=== PATIENT | female | born 1940 | race Caucasian/White ===

== ENCOUNTER 2023-12-17 02:58 | Inpatient (IN) | payer MEDICARE, BC, OTHER ==
--- NOTE | 2023-12-17 03:46 | ED ---
General Adult HPI - General Chief complaint: Weakness Stated complaint: AMS Time Seen by Provider: 12/17/23 03:02 Source: patient Mode of arrival: wheelchair Limitations: no limitations - History of Present Illness Initial comments: Dictation was produced using [employer] dictation software. please excuse any grammatical, word or spelling errors. Chief Complaint: 83-year-old female presents emergency department for weakness and fall History of Present Illness: Patient is 83-year-old female history present illness obtained from patient along with daughter who was checked and is a patient in a different room. Patient states she is here because she is having difficulty walking. Patient denies fall however daughter states that patient fell and hit the back of her head because a little abrasion to her left elbow. Patient Nuys any pain complaints. She does not recall having fallen. Daughter states that patient has been confused mixing her directions up. Daughter is concerned that patient has UTI. The ROS documented in this emergency department record has been reviewed and confirmed by me. Those systems with pertinent positive or negative responses have been documented in the HPI. All other systems are other negative and/or noncontributory. - Related Data Allergies Allergy/AdvReac Type Severity Reaction Status Date / Time No Known Allergies Allergy Verified 12/17/23 03:16 Review of Systems ROS Statement: Those systems with pertinent positive or pertinent negative responses have been documented in the HPI. ROS Other: All systems not noted in ROS Statement are negative. Past Medical History Past Medical History: Asthma, Diabetes Mellitus, Hyperlipidemia, Hypertension, Osteoarthritis (OA), Thyroid Disorder Additional Past Medical History / Comment(s): kidney stones History of Any Multi-Drug Resistant Organisms: None Reported Additional Past Surgical History / Comment(s): aortic valve replacement 2022, brain shunt, back sx 2022 Past Psychological History: No Psychological Hx Reported Smoking Status: Never smoker Past Alcohol Use History: None Reported Past Drug Use History: None Reported General Exam - General Exam Comments Initial Comments: E PHYSICAL EXAM: General Impression: Alert and oriented x3, not in acute distress HEENT: Normocephalic atraumatic, extra-ocular movements intact, pupils equal and reactive to light bilaterally, mucous membranes moist. Cardiovascular: Heart regular rate and rhythm Chest: Able to complete full sentences, no retractions, no tachypnea Abdomen: abdomen soft, non-tender, non-distended, no organomegaly Musculoskeletal: Pulses present and equal in all extremities, no peripheral edema Motor: no focal deficits noted Neurological: CN II-XII grossly intact, no focal motor or sensory deficits noted Skin: Intact with no visualized rashes Psych: Normal affect and mood Limitations: no limitations Course Vital Signs 12/17/23 12/17/23 03:07 06:15 Temperature 97.9 F Pulse Rate 72 79 Respiratory 16 20 Rate Blood Pressure 123/52 142/54 O2 Sat by Pulse 94 L 95 Oximetry EKG Findings - EKG Comments: EKG Findings:: My EKG interpretation: Ventricular rate 72, sinus rhythm,. 180, QRS 110, QTc 423. No MI prolongation, no QTC prolongation, no ST or T-wave changes noted. EKG for comparison overall, this EKG is unremarkable Medical Decision Making - Medical Decision Making Was pt. sent in by a medical professional or institution (, PA, INDUSTRIAL ENERGY ENGINEER, urgent care, hospital, or fdc...) When possible be specific @ -No Did you speak to anyone other than the patient for history (EMS, parent, family, police, friend...)? What history was obtained from this source @ -Some history obtained from patient's daughter of the above Did you review nursing and triage notes (agree or disagree)? Why? @ -I reviewed and agree with nursing and triage notes Were old charts reviewed (outside hosp., previous admission, EMS record, old EKG, old radiological studies, urgent care reports/EKG's, fdc records)? Report findings @ -No old charts were reviewed Differential Diagnosis (chest pain, altered mental status, abdominal pain women, abdominal pain men, vaginal bleeding, musculoskeletal, weakness, fever, dyspnea, syncope, headache, dizziness, GI bleed, back pain, seizure, CVA, palpatations, mental health)? @ -Differential Altered Mental Status: Hypoglycemia, DKA, hypercapnia, ETOH, overdose, CO poisoning, trauma, myxedema coma, HTN encephalopathy, infection, encephalitis, psychosis, intercranial hemorrhage, hepatic encephalopathy, meningitis, CVA, this is not meant to be an all-inclusive list EKG interpreted by me (3pts min.). @ -See above X-rays interpreted by me (1pt min.). @ -Pelvis x-ray x-ray shows no acute processes. CT interpreted by me (1pt min.). @ -CT scan of the brain shows no acute processes. U/S interpreted by me (1pt. min.). @ -None done What testing was considered but not performed or refused? (CT, X-rays, U/S, l abs)? Why? @ -None What meds were considered but not given or refused? Why? @ -None Was smoking cessation discussed for >3mins.? @ -No Were there social determinants of health that impacted care today? How? (Homelessness, low income, unemployed, alcoholism, drug addiction, transportation, low edu. Level, literacy, decrease access to med. care, [facility], rehab)? @ -No Was there de-escalation of care discussed even if they declined (Discuss DNR or withdrawal of care, Hospice)? DNR status @ -No What co-morbidities impacted this encounter? (DM, HTN, Smoking, COPD, CAD, Cancer, CVA, ARF, Chemo, Hep., AIDS, mental health diagnosis, sleep apnea, morbid obesity)? @ -None Was patient admitted / discharged? Hospital course, mention meds given and route, prescriptions, significant lab abnormalities, going to OR and other pertinent info. @ -83-year-old female presents to the ER for fall and alleged altered mental status at home. Patient does not have any complaints of focal deficits. Vital signs are stable. Physical examination is benign. Neurologic examination is unremarkable. Patient allegedly fell according to daughter. Patient denies falling. Daughter is concerned that patient might have a urinary tract infection. Laboratory evaluation obtained. CBC, coag panel metabolic panel is within acceptable limits.Imaging studies are negative. Patient attempted to ambulate with assistance at the bedside and is too weak to go home. Daughter does not feel comfortable caring for the patient given that she has her own debilitating issues as well. Patient will be admitted for consultation of physical therapy and social work. Did you discuss the management of the patient with other professionals (professionals i.e. , PA, INDUSTRIAL ENERGY ENGINEER, lab, RT, psych nurse, social problems specialist, hooker on, teacher, corporation officer, nurse case management)? Give summary @ -Case discussed with hospitalist for admission Was critical care preformed (if so, how long)? @ -No Undiagnosed new problem with uncertain prognosis? @ -No Drug Therapy requiring intensive monitoring for toxicity (Heparin, Nitro, Insulin, Cardizem)? @ -No Were any procedures done? @ -No Diagnosis/symptom? Acute, or Chronic, or Acute on Chronic? Uncomplicated (without systemic symptoms) or Complicated (systemic symptoms)? @ -Generalized weakness, fall, gravely disabled Side effects of treatment? @ -No Exacerbation, Progression, or Severe Exacerbation? @ -No Poses a threat to life or bodily function? How? (Chest pain, USA, MA, pneumonia, PE, COPD, DKA, ARF, appy, cholecystitis, CVA, Diverticulitis, Homicidal, Suicidal, threat to staff... and all critical care pts) @ -yes - Lab Data Result diagrams: 12/17/23 03:43 12/17/23 03:43 Lab Results 12/17/23 12/17/23 12/17/23 Range/Units 03:43 03:43 03:43 WBC 7.4 (3.8-10.6) k/uL RBC 3.70 L (3.80-5.40) m/uL Hgb 11.7 (11.4-16.0) gm/dL Hct 35.5 (34.0-46.0) % MCV 95.9 (80.0-100.0) fL MCH 31.6 (25.0-35.0) pg MCHC 32.9 (31.0-37.0) g/dL RDW 13.1 (11.5-15.5) % Plt Count 150 (150-450) k/uL MPV 8.6 Neutrophils % 49 % Lymphocytes % 38 % Monocytes % 7 % Eosinophils % 3 % Basophils % 1 % Neutrophils # 3.6 (1.3-7.7) k/uL Lymphocytes # 2.8 (1.0-4.8) k/uL Monocytes # 0.5 (0-1.0) k/uL Eosinophils # 0.2 (0-0.7) k/uL Basophils # 0.0 (0-0.2) k/uL PT 10.0 (10.0-12.5) sec INR 0.9 (<1.2) APTT 23.8 (22.0-30.0) sec Sodium 139 (137-145) mmol/L Potassium 5.5 H (3.5-5.1) mmol/L Chloride 109 H (98-107) mmol/L Carbon Dioxide 23 (22-30) mmol/L Anion Gap 7 mmol/L BUN 49 H (7-17) mg/dL Creatinine 1.26 H (0.52-1.04) mg/dL Est GFR (CKD-EPI)AfAm 46 (>60 ml/min/1.73 sqM) Est GFR (CKD-EPI)NonAf 40 (>60 ml/min/1.73 sqM) Glucose 168 H (74-99) mg/dL Plasma Lactic Acid Yoel (0.7-2.0) mmol/L Calcium 9.7 (8.4-10.2) mg/dL Magnesium 2.3 (1.6-2.3) mg/dL Total Bilirubin 0.6 (0.2-1.3) mg/dL AST 30 (14-36) U/L ALT 18 (4-34) U/L Alkaline Phosphatase 103 (38-126) U/L Total Protein 6.4 (6.3-8.2) g/dL Albumin 4.1 (3.5-5.0) g/dL 12/17/23 Range/Units 03:43 WBC (3.8-10.6) k/uL RBC (3.80-5.40) m/uL Hgb (11.4-16.0) gm/dL Hct (34.0-46.0) % MCV (80.0-100.0) fL MCH (25.0-35.0) pg MCHC (31.0-37.0) g/dL RDW (11.5-15.5) % Plt Count (150-450) k/uL MPV Neutrophils % % Lymphocytes % % Monocytes % % Eosinophils % % Basophils % % Neutrophils # (1.3-7.7) k/uL Lymphocytes # (1.0-4.8) k/uL Monocytes # (0-1.0) k/uL Eosinophils # (0-0.7) k/uL Basophils # (0-0.2) k/uL PT (10.0-12.5) sec INR (<1.2) APTT (22.0-30.0) sec Sodium (137-145) mmol/L Potassium (3.5-5.1) mmol/L Chloride (98-107) mmol/L Carbon Dioxide (22-30) mmol/L Anion Gap mmol/L BUN (7-17) mg/dL Creatinine (0.52-1.04) mg/dL Est GFR (CKD-EPI)AfAm (>60 ml/min/1.73 sqM) Est GFR (CKD-EPI)NonAf (>60 ml/min/1.73 sqM) Glucose (74-99) mg/dL Plasma Lactic Acid Yoel 1.2 (0.7-2.0) mmol/L Calcium (8.4-10.2) mg/dL Magnesium (1.6-2.3) mg/dL Total Bilirubin (0.2-1.3) mg/dL AST (14-36) U/L ALT (4-34) U/L Alkaline Phosphatase (38-126) U/L Total Protein (6.3-8.2) g/dL Albumin (3.5-5.0) g/dL Disposition Clinical Impression: Weakness, Gravely disabled Disposition: ADMITTED IP TO THIS [facility] Condition: Fair Referrals: None,Stated [Primary Care Provider] - 1-2 days
[2023-12-17 04:09] LABS: Basophils % (A) 1 %; Eosinophils # (A) 0.2 k/uL (0-0.7); Eosinophils % (A) 3 %; HCT 35.5 % (34.0-46.0); HGB 11.7 gm/dL (11.4-16.0); Lymphocytes # (A) 2.8 k/uL (1.0-4.8); Lymphocytes % (A) 38 %; MCH 31.6 pg (25.0-35.0); MCHC 32.9 g/dL (31.0-37.0); MCV 95.9 fL (80.0-100.0); Mean Platelet Volume 8.6; Monocytes # (A) 0.5 k/uL (0-1.0); Monocytes % (A) 7 %; Neutrophils # (A) 3.6 k/uL (1.3-7.7); Neutrophils % (A) 49 %; Platelet Count 150 k/uL (150-450); RDW 13.1 % (11.5-15.5); WBC 7.4 k/uL (3.8-10.6)
[2023-12-17 04:24] LABS: ALT 18 U/L (4-34); AST 30 U/L (14-36); African American GFR (CKD) 46 (>60 ml/min/1.73 sqM); Albumin 4.1 g/dL (3.5-5.0); Alkaline Phosphatase 103 U/L (38-126); Anion Gap 7 mmol/L; Blood Urea Nitrogen 49 mg/dL (7-17); Calcium 9.7 mg/dL (8.4-10.2); Carbon Dioxide 23 mmol/L (22-30); Chloride 109 mmol/L (98-107); Glucose 168 mg/dL (74-99); INR 0.9 (<1.2); Magnesium 2.3 mg/dL (1.6-2.3); Non-African American GFR(CKD) 40 (>60 ml/min/1.73 sqM); Partial Thromboplastin Time 23.8 sec (22.0-30.0); Sodium 139 mmol/L (137-145); Total Bilirubin 0.6 mg/dL (0.2-1.3); Total Protein 6.4 g/dL (6.3-8.2)
[2023-12-17 04:41] LABS: Potassium 5.5 mmol/L (3.5-5.1)
--- NOTE | 2023-12-17 05:05 | CT ---
EXAM: CT Head Without Intravenous Contrast CLINICAL HISTORY: ITS.REASON CT Reason: fall, ams TECHNIQUE: Axial computed tomography images of the head/brain without intravenous contrast. CTDI is 45.2 mGy and DLP is 1071 mGy-cm. This CT exam was performed using one or more of the following dose reduction techniques: automated exposure control, adjustment of the mA and/or kV according to patient size, and/or use of iterative reconstruction technique. COMPARISON: No relevant prior studies available. FINDINGS: Brain: No hemorrhage or mass effect. Ventricles: Shunt catheter in place. Mild ventriculomegaly. Bones/joints: Unremarkable. Soft tissues: Unremarkable. Sinuses: No air fluid level. Mastoid air cells: Clear. IMPRESSION: No acute hemorrhage. Mild ventriculomegaly EXAM: CT Cervical Spine Without Intravenous Contrast CLINICAL HISTORY: ITS.REASON CT Reason: fall, ams TECHNIQUE: Axial computed tomography images of the cervical spine without intravenous contrast. CTDI is 16.7 mGy and DLP is 482.4 mGy-cm. This CT exam was performed using one or more of the following dose reduction techniques: automated exposure control, adjustment of the mA and/or kV according to patient size, and/or use of iterative reconstruction technique. COMPARISON: No relevant prior studies available. FINDINGS: Vertebrae: No acute fracture. Prior ACDF C4-C7. Discs/spinal canal/neural foramina: degenerative changes. Soft tissues: No prevertebral swelling. IMPRESSION: No acute fracture or subluxation.
--- NOTE | 2023-12-17 06:27 | XR ---
EXAM: XR Chest, 2 Views CLINICAL HISTORY: ITS.REASON XR Reason: fall, ams TECHNIQUE: Frontal and lateral views of the chest. COMPARISON: No relevant prior studies available. FINDINGS: Lungs: Focal opacity in the right cardiophrenic region, probable fat pad. Follow-up could be obtained to exclude early infiltrate or underlying abnormality, as indicated. Streaky density in the lung bases, likely atelectasis. Linear catheter projecting over the right chest. Pleural space: Unremarkable. No pneumothorax. Heart: Unremarkable. No cardiomegaly. Mediastinum: Unremarkable. Normal mediastinal contour. Bones/joints: Degenerative changes are seen in the spine. No acute fracture. Vasculature: Mildly tortuous thoracic aorta. IMPRESSION: 1. Probable epicardial fat-pad in the right cardiophrenic region. 2. Follow-up to assess for any change as indicated as described. 3. Mild bibasilar atelectasis
--- NOTE | 2023-12-17 06:30 | XR ---
EXAM: XR Pelvis, 1 or 2 Views CLINICAL HISTORY: ITS.REASON XR Reason: fall, ams TECHNIQUE: Frontal view of the pelvis. COMPARISON: No relevant prior studies available. FINDINGS: Bones/joints: Surgical hardware in the visualized lower lumbar spine. Degenerative changes in the visualized lower lumbar spine. No acute fracture. No dislocation. Soft tissues: Unremarkable. Tubes, lines and devices: Overlying support apparatus obscure portion of the pelvis. Catheter projects over the right pelvis. IMPRESSION: No gross acute bony abnormality on the frontal views
[2023-12-17] MEDS ORDERED: NALOXONE 0.4 MG/ML 1 ML VIAL IV PRN (06:54)
[2023-12-17 07:22] LABS: Appearance,Urine Clear (Clear); Bilirubin,Urine Negative (Negative); Blood,Urine Negative (Negative); Color,Urine Colorless; Glucose,Urine (UA) Negative (Negative); Ketones,Urine Negative (Negative); Leukocyte Esterase,Urine Negative (Negative); Nitrite,Urine Negative (Negative); Protein,Urine Negative (Negative); Specific Gravity,Urine 1.006 (1.001-1.035); Urobilinogen,Urine <2.0 mg/dL (<2.0)
[2023-12-17 08:29] LABS: Glucose,Whole Blood 119 mg/dL (70-110)
[2023-12-17] MEDS ORDERED: DEXTROSE 50% SYRINGE 50 ML IVP PRN ×2 (09:51)
[2023-12-17] MEDS: INSULIN ASPART (NovoLOG) 100 UNIT/ML VIAL SQ SCH (12:09)
--- NOTE | 2023-12-17 15:44 | P.HPIM ---
History of Present Illness H&P Date: 12/17/23 83-year-old female with a past medical history of type 2 diabetes, status post FILM OR TAPE LIBRARIAN shunt (10 to 12 years ago), aortic valve replacement, NPH, cognitive disorder, anxiety/psychotic disorder and several previous falls presents with acute onset weakness and confusion. Yesterday (12/15) patient was found on the ground after an unwitnessed fall by her daughter. The daughter reports the patient had incontinence while on the ground and was seemingly very confused. The daughter states that the patient normally has some level of confusion but this was to a greater extent. Daughter reports she grew more concerned and decided to bring the patient to the emergency department. Per daughter, patient had similar episodes of confusion 2 times within the past year. She was previously hospitalized at a different hospital, and was supposedly had her FILM OR TAPE LIBRARIAN shunt adjusted. She also follows a psychiatrist and there has been recent medication changes to help with her . Her Lamictal was changed 1 week ago. ED course: In the emergency room the patient was worked up for her new onset encephalopathy and weakness. Patient received imaging which included pelvic and chest x-ray which came back negative for fractures. CT head and spine: No acute hemorrhage. Mild ventriculomegaly. No acute fracture or subluxation. EKG: Rate 72 NSR, QRS 110, QTc 423. No MT prolongation, no QTc prolongation, no ST or T wave changes noted. Labs: Sodium 139, potassium 5.5, chloride 109, BUN 49, creatinine 1.26, glucose 168, WBC 7.4, RBC 3.7. Patient admitted for further workup of weakness and encephalopathy with unknown etiology. Patient seen and examined at bedside in the ED this morning (12/16). Of note, patient did not display any signs of confusion and per daughter was at her normal baseline of mentation. Patient admitted to diarrhea, but denied headache, chest pain shortness of breath palpitations, constipation, and abdominal pain. Pertinent positives and negatives discussed above, a complete review of systems was preformed and all the other sytems were negative. Vitals Signs Reveiwed. General: Nontoxic, no distress, appears at stated age Derm: warm, dry Head: Atruamatic, normocephalic, symmetric Eyes: EOMI, no lid lag, anicteric sclera Cardiovascular: Regular rate and rhythm, no murmurs gallops nor rubs auscultated. Lungs: Clear bilaterally, no Rales or wheezing auscultated Abdominal: Soft nontender, no distention guarding or rigidity noted on inspection. Ext: Ambulates all extremities, 5 out of 5 motor strength. Neuro: Neurologically intact, no deficits appreciated. Psych: Alert, oriented, appropriate affect Assesment and Plan: Acute encephalopathy with unknown etiology: Acute urinary retention History of NPH status post FILM OR TAPE LIBRARIAN shunt, greater than 10 years ago Anxiety Mild cognitive disorder Psychotic disorder Frequent falls Urinalysis came back clean, rules out UTI Patient was straight cathed in the ED, significant retention noted after catheter placement which could explain brief period of encephalopathy, continue to monitor urine output History of ventriculoperitoneal shunt placement greater than 10 years ago previously diagnosed NPH, will discuss with neurology as potential source of encephalopathy, possible FILM OR TAPE LIBRARIAN shunt failure versus TIMBER APPRAISER infection Home medications reconciled upon admission, polypharmacy is a potential etiology of encephalopathy, holding tizanidine, Lyrica, Michelle, Zyprexa Continue Prozac 20 mg daily, Lamictal 200 mg daily, Effexor 75 mg nightly CVA unlikely after negative CT without contrast Creatinine 1.26, will discover patient's normal baseline creatinine in order to rule in or out potential uremic encephalopathy Ordered TSH, B12, and A1c to rule out other etiologies Neurochecks every 4 hours, monitor for any gross abnormalities Hold Lasix, orthostatic vitals pending KASHMIR? 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 Hypertension Continue amlodipine 10 mg daily Holding lisinopril F none E none N heart healthy diet A ambulates with walker at home DVT ppx: Subcu heparin Code Status: Full code Anticipated discharge place: To home with daughter Anticipated discharge time: Pending clinical course I have seen and evaluated the patient today. Discussed with the resident and agree with the residents finding and plan as documented in the resident's note. Changes highlighted in blue. I have personally discussed management with neurology, less likely to be FILM OR TAPE LIBRARIAN shunt failure, likely secondary to her drugs, urinary retention or metabolic encephalopathy. Past Medical History Past Medical History: Asthma, Diabetes Mellitus, Hyperlipidemia, Hypertension, Osteoarthritis (OA), Thyroid Disorder Additional Past Medical History / Comment(s): kidney stones History of Any Multi-Drug Resistant Organisms: None Reported Additional Past Surgical History / Comment(s): aortic valve replacement 2022, brain shunt, back sx 2022 Past Psychological History: No Psychological Hx Reported Smoking Status: Never smoker Past Alcohol Use History: None Reported Past Drug Use History: None Reported Medications and Allergies Home Medications Medication Instructions Recorded Confirmed Type Atorvastatin [Lipitor] 40 mg PO DAILY 12/17/23 12/17/23 History Azelastine HCl [Astepro] 1 - 2 spray EA NOSTRIL BID PRN 12/17/23 12/17/23 History FLUoxetine HCL [PROzac] 20 mg PO DAILY 12/17/23 12/17/23 History Fexofenadine HCl [Michelle Allergy] 180 mg PO DAILY 12/17/23 12/17/23 History Furosemide [Lasix] 20 mg PO DAILY 12/17/23 12/17/23 History Insulin Glargine,Hum.rec.anlog 60 units SQ HS 12/17/23 12/17/23 History [Lantus Solostar Pen] Insulin Lispro [Insulin Lispro See Protocol SQ AC-TID 12/17/23 12/17/23 History Kwikpen U-100] Levothyroxine Sodium [Synthroid] 50 mcg PO DAILY 12/17/23 12/17/23 History OLANZapine [ZyPREXA] 2.5 mg PO QAM 12/17/23 12/17/23 History OLANZapine [ZyPREXA] 5 mg PO DAILY@1200 12/17/23 12/17/23 History OLANZapine [ZyPREXA] 7.5 mg PO HS 12/17/23 12/17/23 History Pregabalin [Lyrica] 50 mg PO BID 12/17/23 12/17/23 History Venlafaxine HCl ER [Effexor Xr] 75 mg PO HS 12/17/23 12/17/23 History amLODIPine [Norvasc] 10 mg PO DAILY 12/17/23 12/17/23 History lamoTRIgine [LaMICtal] 200 mg PO DAILY 12/17/23 12/17/23 History lisinopriL 40 mg PO DAILY 12/17/23 12/17/23 History sitaGLIPtin [Januvia] 100 mg PO DAILY 12/17/23 12/17/23 History tiZANidine [Zanaflex] 2 - 4 mg PO Q6H PRN 12/17/23 12/17/23 History Allergies Allergy/AdvReac Type Severity Reaction Status Date / Time No Known Allergies Allergy Verified 12/17/23 09:18 Physical Exam Vitals: Vital Signs Temp Pulse Resp BP Pulse Ox 12/17/23 08:11 76 18 111/90 95 12/17/23 06:15 79 20 142/54 95 12/17/23 03:07 97.9 F 72 16 123/52 94 L Intake and Output 12/16/23 12/17/23 12/17/23 22:59 06:59 14:59 Output Total 800 Balance -800 Output: Urine 800 Straight 800 Other: Weight 108.862 kg Results CBC & Chem 7: 12/17/23 03:43 12/17/23 03:43 Labs: Abnormal Lab Results - Last 24 Hours (Table) 12/17/23 12/17/23 12/17/23 Range/Units 03:43 03:43 08:28 RBC 3.70 L (3.80-5.40) m/uL Potassium 5.5 H (3.5-5.1) mmol/L Chloride 109 H (98-107) mmol/L BUN 49 H (7-17) mg/dL Creatinine 1.26 H (0.52-1.04) mg/dL Glucose 168 H (74-99) mg/dL POC Glucose (mg/dL) 119 H (70-110) mg/dL
--- NOTE | 2023-12-17 17:23 | P.CNNES ---
History of Present Illness Consult date: 12/17/23 Requesting physician: Sabino Trejo Reason for Consult: acute encephalopathy, NPH s/p CRIMINAL LAWYER History of Present Illness: This is an 83-year-old woman with history of normal pressure hydrocephalus status post shunt in 2009, recurrent falls diabetes mellitus, aortic valve replacement presented emergency department because of confusion and fall. Patient daughter is at bedside who provides some of the history. The daughter is somewhat tangential on providing the history. It seems that the patient had a recent fall about a day and a half ago and the daughter stated that she was shuffling her gait and when she fell she hit her head and she did not trip over anything. Seems that she is her head but no loss of consciousness. When she fell she was severely confused seeing people per the daughter. Stated during around that time she had diarrhea and again was confused and when she wiped herself she wiped from the to the front. Daughter states currently she is drastically less confused feels her gait is still shuffling. It seems that she is on multiple psych medication and she stated that her last modification was about a month or 2-month ago regarding the olanzapine and Effexor and was doing well. At baseline she walks with a walker at times and at times she does not use a walker so couple days ago she was at her baseline walking without any issues. Upon talking to the primary team he stated that her Lamictal has been modified in the last 1 week. The patient and the daughter the patient has severe arthritis over the knees and its bone to bone as well as has left hip pain. It seems that she had urinary retention when she presented to our facility. Of note, regarding her CRIMINAL LAWYER shunt was placed in 2009 at [facility]. Last revision was about [address] Ramirez (Neurosurgeon over [facility]). Some of the work-up during this hospital visit consisted of: TSH is 1.340 Vitamin B12 is 1123 Sodium, calcium, magnesium AST ALT are within normal limits Creatnine is 1.26 CT of the head is reported as no acute hemorrhage. Mild ventriculomegaly. I personally reviewed the CT and I agree there is no acute or subacute hemorrhage. I do feel the patient does have hydrocephalus even with a CRIMINAL LAWYER shunt that seems mild to moderate. CT cervical spine is reported as no acute fracture or subluxation. Hip x-ray is reported as no gross acute bony abnormality on the frontal views. Review of Systems The positive and negative as per HPI. Past Medical History Past Medical History: Asthma, Diabetes Mellitus, Hyperlipidemia, Hypertension, Osteoarthritis (OA), Thyroid Disorder Additional Past Medical History / Comment(s): kidney stones History of Any Multi-Drug Resistant Organisms: None Reported Additional Past Surgical History / Comment(s): aortic valve replacement 2022, brain shunt, back sx 2022 Past Psychological History: No Psychological Hx Reported Smoking Status: Never smoker Past Alcohol Use History: None Reported Past Drug Use History: None Reported Medications and Allergies Home Medications Medication Instructions Recorded Confirmed Type Atorvastatin [Lipitor] 40 mg PO DAILY 12/17/23 12/17/23 History Azelastine HCl [Astepro] 1 - 2 spray EA NOSTRIL BID PRN 12/17/23 12/17/23 History FLUoxetine HCL [PROzac] 20 mg PO DAILY 12/17/23 12/17/23 History Fexofenadine HCl [Michelle Allergy] 180 mg PO DAILY 12/17/23 12/17/23 History Furosemide [Lasix] 20 mg PO DAILY 12/17/23 12/17/23 History Insulin Glargine,Hum.rec.anlog 60 units SQ HS 12/17/23 12/17/23 History [Lantus Solostar Pen] Insulin Lispro [Insulin Lispro See Protocol SQ AC-TID 12/17/23 12/17/23 History Kwikpen U-100] Levothyroxine Sodium [Synthroid] 50 mcg PO DAILY 12/17/23 12/17/23 History OLANZapine [ZyPREXA] 2.5 mg PO QAM 12/17/23 12/17/23 History OLANZapine [ZyPREXA] 5 mg PO DAILY@1200 12/17/23 12/17/23 History OLANZapine [ZyPREXA] 7.5 mg PO HS 12/17/23 12/17/23 History Pregabalin [Lyrica] 50 mg PO BID 12/17/23 12/17/23 History Venlafaxine HCl ER [Effexor Xr] 75 mg PO HS 12/17/23 12/17/23 History amLODIPine [Norvasc] 10 mg PO DAILY 12/17/23 12/17/23 History lamoTRIgine [LaMICtal] 200 mg PO DAILY 12/17/23 12/17/23 History lisinopriL 40 mg PO DAILY 12/17/23 12/17/23 History sitaGLIPtin [Januvia] 100 mg PO DAILY 12/17/23 12/17/23 History tiZANidine [Zanaflex] 2 - 4 mg PO Q6H PRN 12/17/23 12/17/23 History Allergies Allergy/AdvReac Type Severity Reaction Status Date / Time No Known Allergies Allergy Verified 12/17/23 09:18 Physical Examination - Vital Signs Vital Signs: Vital Signs Temp Pulse Resp BP Pulse Ox 12/17/23 16:10 87 18 127/53 96 12/17/23 15:00 70 18 174/86 96 12/17/23 13:36 70 18 122/52 98 12/17/23 08:11 76 18 111/90 95 12/17/23 06:15 79 20 142/54 95 12/17/23 03:07 97.9 F 72 16 123/52 94 L Intake and Output 12/17/23 12/17/23 12/17/23 06:59 14:59 22:59 Output Total 800 Balance -800 Output: Urine 800 Straight 800 Other: Weight 108.862 kg GENERAL: The patient is lying in bed and is not in acute distress. HENT: Supple neck. NEUROLOGICAL: Higher mental function: The patient is awake, alert, oriented to self, place and time. Patient is following commands. No aphasia and no neglect. Cranial nerves: The pupils are round, equal and reactive to light and accommodation. Visual mei are full to confrontation throughout. Extraocular movement is intact no nystagmus is noted. Facial sensation is normal to touch throughout. The facial strength is normal throughout. Hearing is mildly decreased bilaterally to hand rub. Tongue is midline and moved [id number] without any difficulty. No dysarthria is noted. Shoulder shrug is normal bilaterally. Motor: Gait is slow and taking small steps. The strength is 5 over 5 throughout uppers but lowers is somewhat limited because of pain but had at least 4+. Normal tone and bulk. Cerebellum: Normal finger to nose bilaterally. Sensation: Sensation is normal to touch throughout. Reflexes (right/left): 2+ in uppers while lowers are 1+. Plantars are downgoing bilaterally. Results - Laboratory Findings CBC and BMP: 12/17/23 03:43 12/17/23 03:43 Abnormal Lab Findings: Abnormal Labs 12/17/23 12/17/23 12/17/23 03:42 03:43 03:43 RBC 3.70 L Potassium 5.5 H Chloride 109 H BUN 49 H Creatinine 1.26 H Glucose 168 H POC Glucose (mg/dL) Vitamin B12 1123.0 H 12/17/23 08:28 RBC Potassium Chloride BUN Creatinine Glucose POC Glucose (mg/dL) 119 H Vitamin B12 Assessment and Plan Assessment: This is an 83-year-old woman with history of normal pressure hydrocephalus status post shunt in 2009 at [place] and had last revision about 9 months ago by the neurosurgeon, recurrent falls who has been doing well until about about 1 to 2 days ago prior to present to the hospital which she fell and has been confused having visual hallucinations seeing people and daughter feels that she is shuffling gait. Had recent diarrhea with urinary retention. it seems that her psych medication was last modified about a week ago. Currently her confusion has improved. Altered mental status with visual hallucination: Unsure exact cause. Unsure if due to her psych medication modification as well as metabolic encephalopathy. I would not expect the CRIMINAL LAWYER shunt to be cause since was transient and now resolved. Slow Gait is likely due to her underlying normal pressure hydrocephalus. Has hydrocephalus on the CT and is reported as mild. I felt was mild to moderate and no previous CTs for comparison Acute urinary retention Hyperkalemia Acute kidney injury Normal pressure hydrocephalus status post CRIMINAL LAWYER shunt in 2009 at [place] and her last revision was [address] Ramirez (over at [facility]) Recurrent falls Mild cognitive impairment History of diabetes mellitus History of aortic valve replacement Plan: I ordered CT lumbar spine Was ordered and is pending Hemoglobin A1c is ordered and is pending Will reassess the patient's gait during the stay and we will see if the patient requires neurosurgical evaluation for shunt evaluation prior to discharge compared to outpatient. She will need to follow-up with Dr. Ramirez (neurosurgeon) over [facility] Physical therapy is consulted. I consulted Occupational Therapy as well. Will defer the rest of the medical management the primary and other specialist Plan discussed with the patient, her daughter was at bedside and the primary team Thank for the consultation Time with Patient: Greater than 30
[2023-12-17 17:32] LABS: Glucose,Whole Blood 150 mg/dL (70-110)
[2023-12-17 20:22] LABS: Glucose,Whole Blood 230 mg/dL (70-110)
[2023-12-17] MEDS: VENLAFAXINE HCL ER 75 MG CAP PO SCH (20:27)
--- NOTE | 2023-12-17 20:37 | CT ---
EXAMINATION TYPE: CT lumbar spine wo con DATE OF EXAM: 12/17/2023 COMPARISON: None HISTORY: 83-year-old female Unsteady gait with urinary retention. TECHNIQUE: Contiguous axial scanning of the lumbar spine without IV contrast. Coronal and sagittal re constructions performed. CT DLP: 1794.5 mGycm Automated exposure control for dose reduction was used. FINDINGS: Vertebral body heights are preserved. Status post L3-L5 posterior lumbar fusion. There is bulky posterior bridging spur posteriorly at L4-L5 which continues to severe focal spinal ca nal stenosis. Disc bulge at L3-L4 contributes to moderate to severe spinal canal stenosis. Above the fusion L2-L3, there is a component of congenital spinal canal stenosis along with disc oste ophyte complex contributing to severe focal spinal canal stenosis. At L1-L2, disc osteophyte complex contributing to moderate focal spinal canal stenosis. At T12-L1, there is bridging endplate spondylosis contributing to focal moderate canal stenosis. On the left, changes result in moderate neuroforaminal stenosis at L5-S1 and mild at L3-L4 and L4-L5. On the right, changes result in moderate to severe neuroforaminal stenosis at L5-S1 and mild at L3-L4 and L4-L5. Alignment is maintained. IMPRESSION: 1. PREVIOUS L3-L5 POSTERIOR LUMBAR FUSION. 2. HOWEVER, THERE IS A LARGE BRIDGING ENDPLATE OSSIFICATION POSTERIORLY AT L4-L5 WHICH RESULTS IN SEV ERE FOCAL SPINAL CANAL STENOSIS. 3. POSTERIOR DISC BULGE AT THE FUSED L3-L4 LEVEL CONTRIBUTES TO MODERATE TO SEVERE SPINAL CANAL STENO SIS. 4. ABOVE THE FUSION AT L2-L3, THERE IS CONGENITAL SPINAL CANAL NARROWING ALONG WITH DISC OSTEOPHYTE C OMPLEX CONTRIBUTING TO SEVERE FOCAL SPINAL CANAL STENOSIS. 5. DISC OSTEOPHYTE COMPLEXES AT BOTH T12-L1 AND L1-L2 CONTRIBUTING TO MODERATE SPINAL CANAL STENOSES AT BOTH OF THESE LEVELS. 6. MODERATE TO SEVERE RIGHT AND MODERATE LEFT NEUROFORAMINAL STENOSIS AT L5-S1.
[2023-12-17 22:26] LABS: Glucose,Whole Blood 250 mg/dL (70-110)
[2023-12-18] MEDS: HEPARIN SODIUM,PORCINE 5,000 UNIT/ML 1 ML VIAL SQ SCH (00:12)
[2023-12-18 06:10] LABS: Glucose,Whole Blood 236 mg/dL (70-110)
[2023-12-18 07:48] LABS: Basophils # (A) 0.1 k/uL (0-0.2); Basophils % (A) 1 %; Eosinophils # (A) 0.2 k/uL (0-0.7); Eosinophils % (A) 3 %; HCT 35.4 % (34.0-46.0); HGB 11.9 gm/dL (11.4-16.0); Lymphocytes # (A) 3.3 k/uL (1.0-4.8); Lymphocytes % (A) 45 %; MCH 31.9 pg (25.0-35.0); MCHC 33.6 g/dL (31.0-37.0); MCV 94.9 fL (80.0-100.0); Mean Platelet Volume 8.4; Monocytes # (A) 0.4 k/uL (0-1.0); Monocytes % (A) 6 %; Neutrophils # (A) 3.1 k/uL (1.3-7.7); Neutrophils % (A) 42 %; Platelet Count 159 k/uL (150-450); RBC 3.73 m/uL (3.80-5.40); RDW 13.3 % (11.5-15.5); WBC 7.3 k/uL (3.8-10.6)
[2023-12-18 08:06] LABS: African American GFR (CKD) 64 (>60 ml/min/1.73 sqM); Anion Gap 3 mmol/L; Blood Urea Nitrogen 33 mg/dL (7-17); Calcium 9.5 mg/dL (8.4-10.2); Carbon Dioxide 27 mmol/L (22-30); Chloride 113 mmol/L (98-107); Glucose 196 mg/dL (74-99); Non-African American GFR(CKD) 55 (>60 ml/min/1.73 sqM); Sodium 143 mmol/L (137-145)
[2023-12-18 08:52] VITALS: BP 156/79; PULSE 80; RESP 15; TEMP 98.3
[2023-12-18] MEDS: amLODIPine 10 MG TAB PO SCH (09:57)
[2023-12-18] MEDS: FLUoxetine HCL 20 MG CAP PO SCH (09:57)
[2023-12-18] MEDS: lamoTRIgine 100 MG TAB PO SCH (09:57)
[2023-12-18] MEDS: ATORVASTATIN 40 MG TAB PO SCH (09:57)
[2023-12-18] MEDS: LEVOTHYROXINE 50 MCG TAB PO SCH (09:57)
[2023-12-18 11:48] LABS: Glucose,Whole Blood 155 mg/dL (70-110)
[2023-12-18] MEDS: lisinopriL 20 MG TAB PO SCH (12:00)
--- NOTE | 2023-12-18 14:10 | P.DS ---
Providers Date of admission: 12/17/23 06:57 Expected date of discharge: 12/18/23 Attending physician: Carlos Marvin MD Consults: 12/17/23 09:48 Consult Physician Routine Consulting Provider: Isma Clemente Consult Reason/Comments: acute encephalopathy, NPH s/p GLAZING MACHINE OPERATOR shunt 12 years ago Do you want consulting provider notified?: Yes Primary care physician: Stated None Hospital Course: Discharge Diagnosis: Acute encephalopathy, likely metabolic versus medication induced Acute urinary retention History of NPH status post GLAZING MACHINE OPERATOR shunt, greater than 10 years ago Anxiety Mild cognitive disorder Psychotic disorder Frequent falls KASHMIR Diabetes mellitus type 2 Vaginal spotting Hypertension Hospital Course: 83-year-old female with a past medical history of type 2 diabetes, NPH status post shunt, aortic valve replacement, and long history of falls presented to the ED with weakness, confusion, and a recent fall. In the ED patient was found to have significant urinary retention, had straight catheterization. Vital signs were within normal limits. Patient also underwent imaging which ruled out fractures after the fall. CT head and neck did not show any acute process. Patient was admitted to the floors to monitor for signs of continued encephalopathy. Patient found to have KASHMIR in the setting of urinary retention which resolved while inpatient. Per daughter, patient has occasional vaginal spotting once every 3 to 4 weeks, counseled to follow-up with PCP for outpatient TVUS. Neurology was consulted. Lumbar spine CT showed prior L3-L5 posterior lumbar fusion, severe focal spinal stenosis at L4-5, and had L2-L3, and some moderate to severe spinal canal stenosis L3-4, and at other levels within lumbar spine. Patient to follow-up with Ortho spine surgery outpatient. Patient's symptoms of encephalopathy resolved inpatient after holding some home me dications in addition to ensuring no urinary retention. Patient is on multiple different psychiatric medications, which may need further titration outpatient. Patient unable to ambulate with a walker in the hospital. Patient being discharged on reconciled home medication list. Being discharged back to home with daughter. PT also consulted outpatient. She is also recommended to follow- up with neurosurgery at [facility]. Pt seen and examined at bedside: Vital signs reveiwed and stable: General: Nontoxic, no distress, appears at stated age Derm: Warm, dry Head: Atruamatic, normochepalic, symmetric Eyes: EOMI, no lid lag, anicteric sclera Mouth: No lip lesion, mucus membranes moist Cardiovascular: S1S2 reg, no murmur Lung: CTA bilateral, no rhonchi, no rales, no accessory muscle use Abdominal: Soft, nontender to palpation, no guarding, no appreciable organomegaly Ext: No gross muscle atrophy, no edema, no contractures Neuro: CN II- XI grossly intact, no facial neuro deficits Psych: Alert, oriented, appropriate affect A total of 33 minutes were spent preparing this complex discharge summary. Patient was discharged on 12/18/2023 at 1155. I have seen and evaluated the patient today. Discussed with the resident and agree with the residents finding and plan as documented in the resident's note. Changes highlighted in blue font. Patient Condition at Discharge: Stable Plan - Discharge Summary Discharge Rx Participant: Yes New Discharge Prescriptions: Continue sitaGLIPtin [Januvia] 100 mg PO DAILY amLODIPine [Norvasc] 10 mg PO DAILY FLUoxetine HCL [PROzac] 20 mg PO DAILY Venlafaxine HCl ER [Effexor XR] 75 mg PO HS Fexofenadine HCl [Michelle Allergy] 180 mg PO DAILY Atorvastatin [Lipitor] 40 mg PO DAILY lamoTRIgine [LaMICtal] 200 mg PO DAILY Azelastine HCl [Astepro] 1 - 2 spray EA NOSTRIL BID PRN PRN Reason: Congestion Levothyroxine Sodium [Synthroid] 50 mcg PO DAILY Insulin Glargine,Hum.rec.anlog [Lantus Solostar Pen] 60 units SQ HS lisinopriL 40 mg PO DAILY Insulin Lispro [Insulin Lispro Kwikpen U-100] See Protocol SQ AC-TID Changed OLANZapine [ZyPREXA] 5 mg PO DAILY@1200 PRN #0 PRN Reason: Agitation Discontinued Furosemide [Lasix] 20 mg PO DAILY OLANZapine [ZyPREXA] 2.5 mg PO QAM tiZANidine [Zanaflex] 2 - 4 mg PO Q6H PRN PRN Reason: Pain Pregabalin [Lyrica] 50 mg PO BID OLANZapine [ZyPREXA] 7.5 mg PO HS Discharge Medication List Atorvastatin [Lipitor] 40 mg PO DAILY 12/17/23 [History] Azelastine HCl [Astepro] 1 - 2 spray EA NOSTRIL BID PRN 12/17/23 [History] FLUoxetine HCL [PROzac] 20 mg PO DAILY 12/17/23 [History] Fexofenadine HCl [Michelle Allergy] 180 mg PO DAILY 12/17/23 [History] Insulin Glargine,Hum.rec.anlog [Lantus Solostar Pen] 60 units SQ HS 12/17/23 [History] Insulin Lispro [Insulin Lispro Kwikpen U-100] See Protocol SQ AC-TID 12/17/23 [History] Levothyroxine Sodium [Synthroid] 50 mcg PO DAILY 12/17/23 [History] Venlafaxine HCl ER [Effexor XR] 75 mg PO HS 12/17/23 [History] amLODIPine [Norvasc] 10 mg PO DAILY 12/17/23 [History] lamoTRIgine [LaMICtal] 200 mg PO DAILY 12/17/23 [History] lisinopriL 40 mg PO DAILY 12/17/23 [History] sitaGLIPtin [Januvia] 100 mg PO DAILY 12/17/23 [History] OLANZapine [ZyPREXA] 5 mg PO DAILY@1200 PRN #0 12/18/23 [Rx] Follow up Appointment(s)/Referral(s): Cezar Acuna MD [REFERRING] - 1 Week None,Stated [Primary Care Provider] - 1-2 days Marc Castillo DO [Doctor of Osteopathic Medicine] - 1 Week Patient Instructions/Handouts: Back Pain (ED), Encephalopathy (DC) Activity/Diet/Wound Care/Special Instructions: Please see PCP (if you do not have one, please make an appointment with Dr. Acuna). Please also see your psychiatrist, Dr. Christine at [facility] for neurosurgery, and orthospine surgery for back pain. Discharge Disposition: HOME WITH HOME HEALTH SERVICES
--- NOTE | 2023-12-18 15:19 | P.PN ---
Subjective Progress Note Date: 12/18/23 I am following up with the patient and she feels she is drastically better today compared to yesterday. She feels her walking is better and per the nurse she was evaluated by physical therapy who felt is doing good. No further confusion. I spoke with primary team and they feel she is doing better. Primary team stopped Zyprexa yesterday. Objective - Vital Signs Vital signs: Vital Signs Temp 98.3 F 12/18/23 07:12 Pulse 80 12/18/23 07:12 Resp 15 12/18/23 07:12 BP 156/79 12/18/23 07:12 Pulse Ox 97 12/18/23 07:12 FiO2 Intake & Output 12/17/23 12/18/23 12/18/23 18:59 06:59 18:59 Output Total 850 Balance -850 Weight 108.862 kg Output: Urine 850 Other: Voiding Method Diaper Incontinent External Catheter - Exam GENERAL: The patient is lying in bed and is not in acute distress. HENT: Supple neck. NEUROLOGICAL: Higher mental function: The patient is awake, alert, oriented to self, place and time. Patient is following commands. No aphasia and no neglect. Cranial nerves: The pupils are round, equal and reactive to light and accommodation. Visual mei are full to confrontation throughout. Extraocular movement is intact no nystagmus is noted. Facial sensation is normal to touch throughout. The facial strength is normal throughout. Hearing is mildly decreased bilaterally to hand rub. Tongue is midline and moved [id number] without any difficulty. No dysarthria is noted. Shoulder shrug is normal bilaterally. Motor: Gait is better today and walking without any assistance (yesterday was two person assist) and was able to maneuver the walker without any issues. The strength is 5 over 5 throughout uppers and lowers. Normal tone and bulk. Cerebellum: Normal finger to nose bilaterally. Sensation: Sensation is normal to touch throughout. Reflexes (right/left): 2+ in uppers while lowers are 1+. Plantars are downgoing bilaterally. Some of the work-up during this hospital visit consisted of: TSH is 1.340 Vitamin B12 is 1123 HbA1c: 7.7 Sodium, calcium, magnesium AST ALT are within normal limits Creatnine is 1.26 CT of the head is reported as no acute hemorrhage. Mild ventriculomegaly. I personally reviewed the CT and I agree there is no acute or subacute hemorrhage. I do feel the patient does have hydrocephalus even with a MILITARY SCIENCE TEACHER shunt that seems mild to moderate. CT cervical spine is reported as no acute fracture or subluxation. Hip x-ray is reported as no gross acute bony abnormality on the frontal views. CT lumbar spine is reported as previous L3-L5 posterior lumbar fusion. However there is a large bridging endplate ossification posteriorly at L4-L5 which resulted in severe focal spinal canal stenosis. Posterior disc bulge at fused L3-L4 level contributes to moderate to severe spinal canal stenosis. Above the fusion at L2-L3 there is congenital spinal canal narrowing along with disc osteophyte complex contributing to severe spinal canal stenosis. Disc osteophyte complexes at both T12-L1 and L1-L2 contribute to moderate spinal canal stenosis at both of these level. Moderate severe right and moderate left neuroforaminal stenosis at L5-S1. - Labs CBC & Chem 7: 12/18/23 07:12/18/23 07:04 Labs: Abnormal Lab Results - Last 24 Hours (Table) 12/17/23 12/17/23 12/17/23 Range/Units 03:42 17:30 20:20 RBC (3.80-5.40) m/uL Chloride (98-107) mmol/L BUN (7-17) mg/dL Glucose (74-99) mg/dL POC Glucose (mg/dL) 150 H 230 H (70-110) mg/dL Hemoglobin A1c (<=6.0) % Vitamin B12 1123.0 H (200.0-944.0) pg/mL 12/17/23 12/18/23 12/18/23 Range/Units 22:23 05:22 06:08 RBC (3.80-5.40) m/uL Chloride (98-107) mmol/L BUN (7-17) mg/dL Glucose (74-99) mg/dL POC Glucose (mg/dL) 250 H 236 H (70-110) mg/dL Hemoglobin A1c 7.7 H (<=6.0) % Vitamin B12 (200.0-944.0) pg/mL 12/18/23 12/18/23 12/18/23 Range/Units 07:04 07:04 11:46 RBC 3.73 L (3.80-5.40) m/uL Chloride 113 H (98-107) mmol/L BUN 33 H (7-17) mg/dL Glucose 196 H (74-99) mg/dL POC Glucose (mg/dL) 155 H (70-110) mg/dL Hemoglobin A1c (<=6.0) % Vitamin B12 (200.0-944.0) pg/mL Assessment and Plan Assessment: This is an 83-year-old woman with history of normal pressure hydrocephalus status post shunt in 2009 at [place] and had last revision about 9 months ago by the neurosurgeon, recurrent falls who has been doing well until about about 1 to 2 days ago prior to present to the hospital which she fell and has been confused having visual hallucinations seeing people and daughter feels that she is shuffling gait. Had recent diarrhea with urinary retention. it seems that her psych medication was last modified about a week ago. Currently her confusion has improved. Altered mental status with visual hallucination: Unsure exact cause. Unsure if due to her psych medication modification as well as metabolic encephalopathy. I would not expect the MILITARY SCIENCE TEACHER shunt to be cause since was transient and now resolved---mentation is drastically better. The primary had discontinued her Zyperexa yesterday. Slow Gait is likely due to her underlying normal pressure hydrocephalus. Has hydrocephalus on the CT and is reported as mild. I felt was mild to moderate and no previous CTs for comparison--Today her walk is drastically better compar ed to presentation. I would not expect her NPH would be cause since has drastic improvement without any intervention. Has moderate to severe spinal stenosis of lumbosarcal at multilevels History of fall with lower back surgery Acute urinary retention Hyperkalemia--resikved Acute kidney injury--resolved Normal pressure hydrocephalus status post MILITARY SCIENCE TEACHER shunt in 2009 at [place] and her last revision was [address] Ramirez (over at [facility]) Recurrent falls Mild cognitive impairment Ongoing Diabetes mellitus and recent HbA1c: 7.7 History of aortic valve replacement Plan: I recommend the patient to follow-up with Dr. Ramirez (neurosurgeon) over [facility] as outpatient within 2-3 weeks to have her shunt assessed as well her lumbosacral spinal stenosis. Physical therapy and occupation therapy are consulted. Will defer the rest of the medical management the primary and other specialist Plan discussed with the patient, primary team and the primary team There is no further neurological work-up. Time with Patient: Less than 30
== END 2023-12-18 18:39 | disposition home health service (06) | DRG 92 ==
LOC: EC 02:58 → 5NMEDONC 06:57 → 4SSUR 19:06
PROVIDERS: ADMIT Internal Medicine; ATTEND Internal Medicine
DX: G92.8 Other toxic encephalopathy (principal); G91.2 (Idiopathic) normal pressure hydrocephalus; N17.9 Acute kidney failure, unspecified; M48.061 Spinal stenosis, lumbar region without neurogenic claudication; R33.8 Other retention of urine; I10 Essential (primary) hypertension; E87.5 Hyperkalemia; T50.905A Adverse effect of unspecified drugs, medicaments and biological substances, initial encounter; E78.5 Hyperlipidemia, unspecified; M19.90 Unspecified osteoarthritis, unspecified site; N93.9 Abnormal uterine and vaginal bleeding, unspecified; F29 Unspecified psychosis not due to a substance or known physiological condition; S50.312A Abrasion of left elbow, initial encounter; G93.89 Other specified disorders of brain; R29.6 Repeated falls; Z79.4 Long term (current) use of insulin; Z79.84 Long term (current) use of oral hypoglycemic drugs; Z79.890 Hormone replacement therapy; Z91.81 History of falling; X58.XXXA Exposure to other specified factors, initial encounter; Z79.899 Other long term (current) drug therapy; Z87.442 Personal history of urinary calculi; Z95.2 Presence of prosthetic heart valve; Z98.2 Presence of cerebrospinal fluid drainage device
CPT/HCPCS: 36415; 70450; 71046; 72125; 72131; 72170; 80048; 80053; 80175; 81003; 82607; 83036; 83605; 83735; 84443; 85025; 85610; 85730; 93005; 99285